=== PATIENT | female | born 1950 | race African-American/Black ===

== ENCOUNTER 2016-08-03 15:56 | Emergency (ER) | payer MEDICAID ==
[~2016-08-03] VITALS: Ht 170.2 cm; Wt 111.0 kg
[~2016-08-03 15:56] MED LIST: ALLO300T2 PO; ATEN50TA PO; GABA-290 PO; IBUP-1510 PO
[2016-08-03 17:15] VITALS: BP 134/97
== END 2016-08-03 17:24 | disposition home or self-care (01) ==
LOC: ER 16:51
DX: E11.319 Type 2 diabetes mellitus with unspecified diabetic retinopathy without macular edema (principal); H35.61 Retinal hemorrhage, right eye; I11.0 Hypertensive heart disease with heart failure; I50.9 Heart failure, unspecified; J44.9 Chronic obstructive pulmonary disease, unspecified; Z98.51 Tubal ligation status; Z82.49 Family history of ischemic heart disease and other diseases of the circulatory system
CPT/HCPCS: 99283; Z7610

== ENCOUNTER 2016-11-27 05:23 | Day surgery (SDC) | payer MEDICAID ==
[~2016-11-27] VITALS: Ht 170.2 cm; Wt 113.4 kg
[~2016-11-27 05:23] MED LIST changes: -IBUP-1510 PO; +IBUP-2030 PO
[2016-11-27] MEDS ORDERED: HYALURONATE SODIUM 14 MG/ML 0.85ML SYRINGE IO ONE (07:08)
[2016-11-27] MEDS ORDERED: BALANCED SALT IRRIG SOLN COMB1 500ML OP ONE (07:30)
[2016-11-27] MEDS ORDERED: TROPICAMIDE 1% OPHTH DROPS 15ML RIGHTEYE ONE (09:00)
[2016-11-27] MEDS ORDERED: PHENYLEPHRINE HCL 10% OPHTH DROPS 5ML RIGHTEYE ONE (09:00)
[2016-11-27] MEDS ORDERED: CYCLOPENTOLATE HCL 1% OPHTH DROPS 2ML RIGHTEYE ONE (09:00)
[2016-11-27] MEDS ORDERED: SODIUM CHLORIDE 0.9% 1,000 ML IV SCH (09:45)
[2016-11-27] MEDS ORDERED: HYDR25TA PO (10:14)
[2016-11-27] MEDS ORDERED: METF500T4 PO (10:14)
[2016-11-27] MEDS ORDERED: MULT-1146 PO (10:14)
[2016-11-27] MEDS ORDERED: PROPOFOL 200MG/20ML VIAL IV ONE (11:52)
[2016-11-27] MEDS ORDERED: NEO/POLYMYX B SULF/DEXAMETH OPHTH OINT 3.5GM ONE (17:11)
[2016-11-27] MEDS ORDERED: LIDOCAINE HCL/PF 2% 20 MG/ML 10ML VIAL ONE (17:11)
[2016-11-27] MEDS ORDERED: TETRACAINE 0.5% OPHTH DROPS 4ML ONE (17:11)
[2016-11-27] MEDS ORDERED: LIDOCAINE HCL 2%/EPINEPHRINE 1:100,000 20 ML VIAL INFIL ONE (17:11)
[2016-11-27] MEDS ORDERED: PREDNISOLONE ACETATE 1% OPHTH DROPS 1ML ONE (17:11)
[2016-11-27] MEDS ORDERED: BUPIVACAINE HCL/PF 0.75% (7.5MG/ML) 10ML ONE (17:11)
[2016-11-27] MEDS ORDERED: ACETYLCHOLINE CHLORIDE INTRAOCULAR SOLUTION 1:100 ELECTROLYTE DILUENT IO ONE (17:11)
[2016-11-27] MEDS ORDERED: BALANCED SALT IRRIG SOLN 15ML ONE (17:11)
[2016-11-27] MEDS ORDERED: CIPROFLOXACIN 0.3% OPHTH SOLN 2.5ML ONE (17:11)
== END 2016-11-27 14:00 | disposition home or self-care (01) ==
LOC: OR 05:23
PROVIDERS: ATTEND Ophthalmology
DX: E11.36 Type 2 diabetes mellitus with diabetic cataract (principal); H25.9 Unspecified age-related cataract; H43.11 Vitreous hemorrhage, right eye; I11.0 Hypertensive heart disease with heart failure; I50.9 Heart failure, unspecified; J44.9 Chronic obstructive pulmonary disease, unspecified; M10.079 Idiopathic gout, unspecified ankle and foot
CPT/HCPCS: 66984; 67005; 82962; J3490; J7030; V2632; J2704

== ENCOUNTER 2019-10-22 09:07 | Emergency (ER) | payer MEDICARE, MEDICAID ==
[~2019-10-22] VITALS: Ht 165.1 cm; Wt 91.0 kg
[~2019-10-22 09:07] MED LIST changes: -GABA-290 PO; +HYDR25TA PO; +METF-414 PO; +MULT-1146 PO
[2019-10-22 09:44] VITALS: BP 169/105
[2019-10-22] MEDS ORDERED: KETOROLAC 30MG/ML VIAL IM ONE (09:45)
== END 2019-10-22 11:25 | disposition home or self-care (01) ==
LOC: ER 09:29
DX: S92.351A Displaced fracture of fifth metatarsal bone, right foot, initial encounter for closed fracture (principal); W01.0XXA Fall on same level from slipping, tripping and stumbling without subsequent striking against object, initial encounter; Y93.9 Activity, unspecified; Y92.9 Unspecified place or not applicable; I11.0 Hypertensive heart disease with heart failure; I50.9 Heart failure, unspecified; E11.9 Type 2 diabetes mellitus without complications; M19.90 Unspecified osteoarthritis, unspecified site; Z88.6 Allergy status to analgesic agent
CPT/HCPCS: 29515; 73610; 73630; 96372; 99284; J1885

== ENCOUNTER 2020-12-06 15:02 | Emergency (ER) | payer MEDICARE, MEDICAID ==
[~2020-12-06] VITALS: Ht 170.2 cm; Wt 109.0 kg
[2020-12-06 15:29] VITALS: BP 178/107
== END 2020-12-06 17:38 | disposition left against medical advice (07) ==
LOC: ER 15:02
DX: Z53.21 Procedure and treatment not carried out due to patient leaving prior to being seen by health care provider (principal); I49.9 Cardiac arrhythmia, unspecified
CPT/HCPCS: 93005

== ENCOUNTER 2021-03-17 13:18 | Emergency (ER) | payer MEDICARE, MEDICAID ==
[~2021-03-17] VITALS: Ht 170.2 cm; Wt 112.0 kg
[2021-03-17 15:56] LABS: BASOPHILS % 1.1 % (0.0-2.0); EOSINOPHILS % 0.1 % (0.0-5.0); HEMATOCRIT. 44.5 % (36.0-48.0); HEMOGLOBIN. 13.9 g/dL (12.0-16.0); LYMPHOCYTES % 46.4 % (20.0-50.0); MEAN CORPUSCULAR HEMOGLOBIN 26.3 pg (28.0-32.0); MEAN PLATELET VOLUME 10.3 fl (7.4-10.4); MONOCYTES % 12.7 % (2.0-8.0); NEUTROPHILS % 39.7 % (40.0-76.0); PLATELET 204 x1000/uL (130-400); RED CELL DISTRIBUTION WIDTH 13.7 % (11.6-14.6)
[2021-03-17 16:25] VITALS: BP 107/78
[2021-03-17 16:42] LABS: CHLORIDE 107 mEq/L (98-107)
== END 2021-03-17 16:30 | disposition left against medical advice (07) ==
LOC: ER 13:18
DX: R53.1 Weakness (principal); I11.0 Hypertensive heart disease with heart failure; I50.9 Heart failure, unspecified; E11.9 Type 2 diabetes mellitus without complications; Z98.51 Tubal ligation status; Z88.5 Allergy status to narcotic agent
CPT/HCPCS: 36415; 71045; 80053; 82962; 85025; 93005; 99285

== ENCOUNTER 2022-05-28 16:20 | Emergency (ER) | payer MEDICAID, MEDICARE ==
[~2022-05-28] VITALS: Ht 170.2 cm; Wt 107.0 kg
[2022-05-28 16:40] VITALS: BP 132/82
[2022-05-28] MEDS ORDERED: PREDNISONE 20MG TABLET PO ONE (22:15)
[2022-05-28] MEDS ORDERED: KETOROLAC 60MG/2ML VIAL IM ONE (22:15)
[2022-05-28] MEDS ORDERED: COLCHICINE 0.6MG TABLET PO ONE (22:15)
[2022-05-28] MEDS ORDERED: P20 MT (23:17)
[2022-05-28] MEDS ORDERED: COLC0.6C3 MT (23:17)
[2022-05-28] MEDS ORDERED: IBUP-2028 MT (23:17)
== END 2022-05-28 23:24 | disposition home or self-care (01) ==
LOC: ER 16:20
DX: M10.9 Gout, unspecified (principal); E11.9 Type 2 diabetes mellitus without complications; I11.0 Hypertensive heart disease with heart failure; I50.9 Heart failure, unspecified; Z98.51 Tubal ligation status; Z88.5 Allergy status to narcotic agent
CPT/HCPCS: 96372; 99283; J1885; J7512

== ENCOUNTER 2022-07-14 08:31 | Emergency (ER) | payer MEDICARE ==
[~2022-07-14] VITALS: Ht 170.2 cm; Wt 100.0 kg
[~2022-07-14 08:31] MED LIST changes: +COLC0.6C3 MT; +IBUP-2028 MT; +P20 MT
[2022-07-14 10:47] LABS: CHLORIDE 107 mEq/L (98-107)
[2022-07-14 10:53] LABS: BASOPHILS % 0.4 % (0.0-2.0); EOSINOPHILS % 0.4 % (0.0-5.0); HEMATOCRIT. 39.7 % (36.0-48.0); LYMPHOCYTES % 24.1 % (20.0-50.0); MEAN CORPUSCULAR HEMOGLOBIN 26.7 pg (28.0-32.0); MEAN CORPUSCULAR VOLUME 81.6 fL (81.0-99.0); MONOCYTES % 4.9 % (2.0-8.0); NEUTROPHILS % 70.2 % (40.0-76.0); PLATELET 225 x1000/uL (130-400); RED BLOOD CELL COUNT 4.86 mill/uL (4.2-5.4); RED CELL DISTRIBUTION WIDTH 13.7 % (11.6-14.6)
[2022-07-14 21:14] VITALS: BP 129/84
== END 2022-07-14 21:23 | disposition short-term general hospital (02) ==
LOC: ER 08:34 → CANBEDREQ 07-15 00:17
DX: R06.02 Shortness of breath (principal); R42 Dizziness and giddiness; I11.0 Hypertensive heart disease with heart failure; I50.9 Heart failure, unspecified; E11.9 Type 2 diabetes mellitus without complications; Z98.51 Tubal ligation status; Z79.899 Other long term (current) drug therapy; Z20.822 Contact with and (suspected) exposure to COVID-19
CPT/HCPCS: 36415; 71045; 80053; 83880; 84484; 85025; 87426; 93005; 99291; C9803